=== PATIENT | female | born 1950 | race Caucasian/White ===

== ENCOUNTER → 2018-03-05 | Outpatient (CLI) | payer MEDICARE ==
--- NOTE | 2018-03-05 14:18 | MM ---
Reason for exam: additional evaluation requested from prior study. Last mammogram was performed 1 year and 5 months ago. History: Patient is postmenopausal and has history of breast cancer at age 47. Family history of breast cancer in maternal uncle. Benign excisional biopsy of the left breast, 1997. Mastectomy of the right breast, 1997. Chemotherapy. Took hormonal contraceptives for 20 years beginning at age 19. Took estrogen for 2 years beginning at age 44. Physical Findings: Nurse did not find any significant physical abnormalities on exam. [facility] Diagnostic Mammo LT w CAD CC, MLO, ML, and XCCL view(s) were taken of the left breast. Prior study comparison: October 10, 2016, left breast MG 3d diag mammo w/cad LT. October 08, 2015, left breast MG 3d diag mammo w/cad LT. There are scattered fibroglandular densities. Stable benign calcifications. There is no discrete abnormality. No significant new findings when compared with previous films. These results were verbally communicated with the patient and result sheet given to the patient on 03/05/18. ASSESSMENT: Benign, BI-RAD 2 RECOMMENDATION: Follow-up diagnostic mammogram of the left breast in 1 year.
== END ==
LOC: RADMAMWWP 12:39
PROVIDERS: ATTEND Emergency Medicine Emergency Medical Services
DX: Z08 Encounter for follow-up examination after completed treatment for malignant neoplasm (principal); Z85.3 Personal history of malignant neoplasm of breast
CPT/HCPCS: 77065

== ENCOUNTER → 2019-03-11 | Outpatient (CLI) | payer MEDICARE ==
--- NOTE | 2019-03-11 14:37 | MM ---
Reason for exam: additional evaluation requested from prior study. Last mammogram was performed 1 year ago. History: Patient is postmenopausal and has history of breast cancer at age 47. Family history of breast cancer in maternal uncle and breast cancer in daughter at age 47. Benign excisional biopsy of the left breast, 1997. Mastectomy of the right breast, 1997. Chemotherapy. Took hormonal contraceptives for 20 years beginning at age 19. Took estrogen for 2 years beginning at age 44. Physical Findings: Nurse did not find any significant physical abnormalities on exam. MG Diagnostic Mammo LT w CAD CC and MLO view(s) were taken of the left breast. Prior study comparison: March 05, 2018, left breast MG diagnostic mammo LT w CAD. October 10, 2016, left breast MG 3d diag mammo w/cad LT. There are scattered fibroglandular densities. There is no discrete abnormality. No significant new findings when compared with previous films. These results were verbally communicated with the patient and result sheet given to the patient on 03/11/19. ASSESSMENT: Negative, BI-RAD 1 RECOMMENDATION: Follow-up diagnostic mammogram of the left breast in 1 year.
== END | disposition home or self-care (01) ==
LOC: RADMAMWWP 13:30
PROVIDERS: ATTEND Nurse Practitioner Family
DX: Z08 Encounter for follow-up examination after completed treatment for malignant neoplasm (principal); Z85.3 Personal history of malignant neoplasm of breast; Z90.10 Acquired absence of unspecified breast and nipple
CPT/HCPCS: 77065

== ENCOUNTER → 2020-07-20 | Outpatient (CLI) | payer MEDICARE ==
--- NOTE | 2020-07-23 08:30 | MM ---
Reason for exam: additional evaluation requested from prior study. Last mammogram was performed 1 year and 4 months ago. History: Patient is postmenopausal and has history of breast cancer at age 47. Family history of breast cancer in maternal uncle and breast cancer in daughter at age 47. Benign excisional biopsy of the left breast, 1997. Mastectomy of the right breast, 1997. Chemotherapy. Took hormonal contraceptives for 20 years beginning at age 19. Took estrogen for 2 years beginning at age 44. Physical Findings: Nurse did not find any significant physical abnormalities on exam. MG Diagnostic Mammo LT w CAD CC and MLO view(s) were taken of the left breast. Prior study comparison: March 11, 2019, left breast MG diagnostic mammo LT w CAD. March 05, 2018, left breast MG diagnostic mammo LT w CAD. There are scattered fibroglandular densities. No significant new findings when compared with previous films. These results were verbally communicated with the patient and result sheet given to the patient on 07/20/20. ASSESSMENT: Benign, BI-RAD 2 RECOMMENDATION: Follow-up diagnostic mammogram of the left breast in 1 year.
== END | disposition home or self-care (01) ==
LOC: RADMAMWWP 13:31
PROVIDERS: ATTEND Emergency Medicine Emergency Medical Services
DX: Z08 Encounter for follow-up examination after completed treatment for malignant neoplasm (principal); Z85.3 Personal history of malignant neoplasm of breast
CPT/HCPCS: 77065

== ENCOUNTER 2025-04-08 11:53 | Emergency (ER) | payer MEDICARE ==
[2025-04-08] MEDS ORDERED: LACTATED RINGERS 1,000 ML IV SCH (12:30)
--- NOTE | 2025-04-08 12:41 | ED ---
General Adult HPI - General Chief complaint: Extremity Injury, Lower Stated complaint: Fall/Both Knees Time Seen by Provider: 04/08/25 12:10 Source: patient, RN notes reviewed Mode of arrival: ambulatory Limitations: no limitations - History of Present Illness Initial comments: 74-year-old female presenting with bilateral knee pain after a fall which oc curred yesterday. Patient states that she fell onto both knees but the injury was predominantly to the right knee. She has been ambulating with some pain. Denies head or neck injury. No other pain. - Related Data Allergies Allergy/AdvReac Type Severity Reaction Status Date / Time No Known Allergies Allergy Verified 04/08/25 12:07 Review of Systems ROS Statement: Those systems with pertinent positive or pertinent negative responses have been documented in the HPI. ROS Other: All systems not noted in ROS Statement are negative. Past Medical History Past Medical History: Atrial Fibrillation, Cancer, Diabetes Mellitus, GERD/Reflux, Hyperlipidemia, Hypertension Past Surgical History: Section, Hysterectomy, Joint Replacement Additional Past Surgical History / Comment(s): breast mastectomy Smoking Status: Never smoker General Exam Limitations: no limitations General appearance: alert, in no apparent distress Head exam: Present: atraumatic, normocephalic Eye exam: Present: normal appearance, PERRL ENT exam: Present: normal exam Neck exam: Present: normal inspection. Absent: tenderness, meningismus Respiratory exam: Present: normal lung sounds bilaterally. Absent: respiratory distress, wheezes Cardiovascular Exam: Present: regular rate, normal rhythm GI/Abdominal exam: Present: soft. Absent: distended, tenderness, guarding Extremities exam: Present: joint swelling (Right knee effusion with ecchymosis no gross deformity distal pulses intact) Neurological exam: Present: alert, oriented X3 Psychiatric exam: Present: normal affect, normal mood Skin exam: Present: warm, dry, intact. Absent: cyanosis, diaphoretic Course Vital Signs 04/08/25 12:03 Temperature 98.2 F Pulse Rate 64 Respiratory 16 Rate Blood Pressure 148/77 O2 Sat by Pulse 98 Oximetry Medical Decision Making - Medical Decision Making Was pt. sent in by a medical professional or institution (, [facility], OFFEND[employer] EM[employer]OY[employer]IST, urgent care, hospital, or prison...) When possible be specific @ -No Did you speak to anyone other than the patient for history (EMS, parent, family, police, friend...)? What history was obtained from this source @ -No Did you review nursing and triage notes (agree or disagree)? Why? @ -I reviewed and agree with nursing and triage notes Were old charts reviewed (outside hosp., previous admission, EMS record, old EKG, old radiological studies, urgent care reports/EKG's, prison records)? Report findings @ -No old charts were reviewed Differential Musculoskeletal Muscular strain, contusion, ligament sprain, fracture, arthritis, septic arthritis, bursitis, cellulitis, muscle spasm, nerve compression, DVT, arterial occlusion, herpes zoster, electrolyte abnormality, tumor.... This is not meant to be in all inclusive list EKG interpreted by me (3pts min.). @None done X-rays interpreted by me (1pt min.). @X-ray of the right knee negative for displaced fracture or dislocation, joint effusion present. CT interpreted by me (1pt min.). @ -None done U/S interpreted by me (1pt. min.). @ -None done What testing was considered but not performed or refused? (CT, X-rays, U/S, labs)? Why? @ -None What meds were considered but not given or refused? Why? @ -None Did you discuss the management of the patient with other professionals (professionals i.e. , PA, OFFENDER EMPLOYMENT SPECIALIST, lab, RT, psych nurse, social professionals, identifier horse, teacher, assurance officer, shoe caser)? Give summary @ -No Was smoking cessation discussed for >3mins.? @ -No Was critical care preformed (if so, how long)? @ -No Were there social determinants of health that impacted care today? How? (Homelessness, low income, unemployed, alcoholism, drug addiction, transportation, low edu. Level, literacy, decrease access to med. care, long-term, rehab)? @ -No Was there de-escalation of care discussed even if they declined (Discuss DNR or withdrawal of care, Hospice)? DNR status @ -No What co-morbidities impacted this encounter? (DM, HTN, Smoking, COPD, CAD, Cancer, CVA, ARF, Chemo, Hep., AIDS, mental health diagnosis, sleep apnea, morbid obesity)? @ -None Was patient admitted / discharged? Hospital course, mention meds given and route, prescriptions, significant lab abnormalities, going to OR and other pertinent info. @ -74-year-old female with fall which occurred yesterday injury to both knees, predominantly the right knee. Left knee appears normal no significant swelling no deformity. Right knee does have swelling and anterior ecchymosis. X-ray is negative for displaced fracture or dislocation. Patient is started on anti- inflammatory and will elevate and ice the extremity. Undiagnosed new problem with uncertain prognosis? @ -No Drug Therapy requiring intensive monitoring for toxicity (Heparin, Nitro, Insu rachele, Cardizem)? @ -No Were any procedures done? @ -No Diagnosis/symptom? @ -Knee contusion, knee effusion Acute, or Chronic, or Acute on Chronic? @ -acute Uncomplicated (without systemic symptoms) or Complicated (systemic symptoms)? @ -Default Side effects of treatment? @ -No Exacerbation, Progression, or Severe Exacerbation? @ -No Poses a threat to life or bodily function? How? (Chest pain, USA, VT, pneumonia, PE, COPD, DKA, ARF, appy, cholecystitis, CVA, Diverticulitis, Homicidal, Suicidal, threat to staff... and all critical care pts) @ -No Disposition Clinical Impression: Contusion of knee Disposition: HOME SELF-CARE Condition: Fair Instructions (If sedation given, give patient instructions): Knee Sprain (ED) Is patient prescribed a controlled substance at d/c from ED?: No Referrals: None,Stated [Primary Care Provider] - 1-2 days Time of Disposition: 12:54
[2025-04-08] MEDS: KETOROLAC 15 MG/ML 1 ML VIAL IM STA (12:47)
--- NOTE | 2025-04-08 13:15 | XR ---
EXAMINATION TYPE: XR knee complete RT DATE OF EXAM: 04/08/2025 12:43 PM COMPARISON: None. CLINICAL INDICATION: Female, 74 years old with history of pain/fall, pain TECHNIQUE: 4 view(s) obtained. FINDINGS: There is narrowing of the medial compartment joint space. Lateral tibial plateau and lateral femoral condylar spurring is noted. The joint spaces preserved. Small medial tibial plateau spur is present. Small joint effusion is present. Patellofemoral joint space appears preserved. No acute fracture or dislocation evident. Follow up exams can be performed 7-10 days from acute traum a for continued pain IMPRESSION: 1. Moderate degenerative changes right knee [facility], , 04/08/2025 1:13 PM
[2025-04-08 13:49] VITALS: BP 145/77; PULSE 58; RESP 20; TEMP 97.8
== END 2025-04-08 13:48 | disposition home or self-care (01) ==
LOC: EC 11:53
DX: S80.02XA Contusion of left knee, initial encounter (principal); S80.01XA Contusion of right knee, initial encounter; W19.XXXA Unspecified fall, initial encounter
CPT/HCPCS: 73562; 99283; 96372; J1885